=== PATIENT | female | born 1960 | race Caucasian/White ===

== ENCOUNTER 2024-04-16 18:40 | Inpatient (IN) | payer MEDICAID ==
[~2024-04-16] VITALS: Ht 167.6 cm; Wt 68.9 kg
[~2024-04-16 18:40] MED LIST: GLIM2TAB30 PO; METF-414 PO
[2024-04-16 21:10] VITALS: BP 129/50; PULSE 80; RESP 20; TEMP 36.2
[2024-04-16] MEDS ORDERED: GUAIFENESIN 200MG/10ML SUGAR FREE UDC PO PRN (21:15)
[2024-04-16] MEDS ORDERED: LORAZEPAM 0.5MG TABLET PO PRN (21:15)
[2024-04-16] MEDS ORDERED: DEXTROSE 50% WATER 50ML SYRINGE IV PRN (21:15)
[2024-04-16] MEDS ORDERED: ACETAMINOPHEN 325MG TABLET PO PRN (21:15)
[2024-04-16] MEDS ORDERED: CLONIDINE 0.1MG TABLET PO PRN (21:15)
[2024-04-16] MEDS ORDERED: IPRATROPIUM/ALBUTEROL 0.5-3(2.5)MG/3ML NEB HHN PRN (21:49)
[2024-04-16] MEDS: HYDROCODONE/ACETAMINOPHEN 5/325MG TABLET PO PRN (22:48)
[2024-04-16] MEDS: SODIUM CHLORIDE 0.45% 1,000 ML IV SCH (23:00)
[2024-04-17] MEDS: ONDANSETRON HCL 4MG/2ML INJ IV PRN (00:10)
[2024-04-17] MEDS: MORPHINE SULFATE 2 MG/ML INJ (NOT FOR IM USE) IV PRN (00:12)
[2024-04-17 01:08] LABS: CLARITY URINE CLEAR (CLEAR); COLOR URINE YELLOW (YELLOW); GLUCOSE URINE TRACE (NEGATIVE); KETONES URINE 1+ (NEGATIVE); LEUKOCYTE ESTERASE URINE NEGATIVE (NEGATIVE); NITRITE URINE NEGATIVE (NEGATIVE); OCCULT BLOOD URINE TRACE (NEGATIVE); PROTEIN URINE NEGATIVE (NEGATIVE); SPECIFIC GRAVITY URINE 1.013 (1.005-1.030)
[2024-04-17 02:06] LABS: SQUAMOUS EPITHELIAL CELL URINE 2+ /lpf (RARE/1+)
[2024-04-17 02:07] LABS: BACTERIA URINE NONE SEEN; WBC URINE 0-2 /hpf (0-2)
[2024-04-17 06:36] LABS: BASOPHILS % 0.6 % (0.0-2.0); EOSINOPHILS % 2.3 % (0.0-5.0); LYMPHOCYTES % 21.3 % (20.0-50.0); MEAN CORPUSCULAR HEMOGLOBIN 31.6 pg (28.0-32.0); MEAN CORPUSCULAR HGB CONC 34.5 g/dL (31.0-37.0); MEAN CORPUSCULAR VOLUME 91.6 fL (81.0-99.0); MEAN PLATELET VOLUME 7.6 fl (7.4-10.4); MONOCYTES % 9.3 % (2.0-8.0); NEUTROPHILS % 66.5 % (40.0-76.0); PLATELET 177 x1000/uL (130-400); RED BLOOD CELL COUNT 2.84 mill/uL (4.2-5.4); RED CELL DISTRIBUTION WIDTH 13.6 % (11.6-14.6); WHITE BLOOD COUNT 8.7 x1000/uL (4.5-11.0)
[2024-04-17 06:43] LABS: CHLORIDE 105 mEq/L (98-107); POTASSIUM 3.9 mEq/L (3.5-5.1); SODIUM 139 mEq/L (136-145)
[2024-04-17 06:44] LABS: CALCIUM 8.1 mg/dL (8.7-10.4); CARBON DIOXIDE 28 mEq/L (21-32)
[2024-04-17 06:49] LABS: CREATININE 0.5 mg/dL (0.6-1.0); GLUCOSE 170 mg/dL (70-105); UREA NITROGEN BLOOD 7 mg/dL (9-23)
[2024-04-17 06:51] LABS: ALANINE AMINOTRANSFERASE 9 IU/L (10-49); ASPARTATE AMINOTRANSFERASE 14 IU/L (<34); BILIRUBIN TOTAL 1.1 mg/dL (0.1-1.0); PROTEIN TOTAL 5.2 g/dL (6.0-8.3)
[2024-04-17] MEDS: DOCUSATE SODIUM 100MG CAPSULE PO PRN (07:04)
[2024-04-17] MEDS: BLOOD SUGAR DIAGNOSTIC STRIP TEST SCH (07:04)
[2024-04-17] MEDS: INSULIN LISPRO 100 UNITS/ML SUBCUT SCH (07:11)
[2024-04-17 08:00] VITALS: BP 134/70; PULSE 83; RESP 20; TEMP 37.7; O2SAT 96
[2024-04-17 10:00] VITALS: TEMP 36.6
[2024-04-17] MEDS ORDERED: NALOXONE HCL 0.4MG/ML VIAL IV PRN (13:15)
[2024-04-17] MEDS: HYDROCODONE/ACETAMINOPHEN 5/325MG TABLET PO PRN (13:28)
[2024-04-17] MEDS ORDERED: BISACODYL 10MG SUPP PR NR (15:00)
[2024-04-17] MEDS: HYDROMORPHONE HCL/PF 2MG/ML INJ IV PRN (17:10)
[2024-04-17] MEDS: LACTULOSE 20G/30ML UDC PO SCH (18:00)
[2024-04-17 20:00] VITALS: BP 123/67; PULSE 83; RESP 18; TEMP 36.3; O2SAT 98
[2024-04-18 07:00] LABS: CALCIUM 8.2 mg/dL (8.7-10.4); CARBON DIOXIDE 27 mEq/L (21-32); CHLORIDE 104 mEq/L (98-107); POTASSIUM 3.9 mEq/L (3.5-5.1); SODIUM 140 mEq/L (136-145)
[2024-04-18 07:01] LABS: BASOPHILS % 0.6 % (0.0-2.0); HEMATOCRIT. 24.9 % (36.0-48.0); HEMOGLOBIN. 8.4 g/dL (12.0-16.0); LYMPHOCYTES % 20.8 % (20.0-50.0); MEAN CORPUSCULAR HEMOGLOBIN 31.2 pg (28.0-32.0); MEAN CORPUSCULAR HGB CONC 33.8 g/dL (31.0-37.0); MEAN CORPUSCULAR VOLUME 92.4 fL (81.0-99.0); MEAN PLATELET VOLUME 7.6 fl (7.4-10.4); MONOCYTES % 8.2 % (2.0-8.0); NEUTROPHILS % 64.4 % (40.0-76.0); PLATELET 212 x1000/uL (130-400); RED BLOOD CELL COUNT 2.69 mill/uL (4.2-5.4); RED CELL DISTRIBUTION WIDTH 13.6 % (11.6-14.6); WHITE BLOOD COUNT 7.6 x1000/uL (4.5-11.0)
[2024-04-18 07:02] LABS: FERRITIN 49 ng/mL (10-291); FOLIC ACID (FOLATE) SERUM 14.41 ng/mL (>5.38); THYROID STIMULATING HORMONE 3.13 uIU/mL (0.55-4.78)
[2024-04-18 07:04] LABS: VITAMIN B12 SERUM 725 pg/mL (211-911)
[2024-04-18 07:05] LABS: CREATININE 0.5 mg/dL (0.6-1.0); GLUCOSE 147 mg/dL (70-105); IRON 57 ug/dL (50-170)
[2024-04-18 07:06] LABS: UREA NITROGEN BLOOD 7 mg/dL (9-23)
[2024-04-18 07:07] LABS: ALANINE AMINOTRANSFERASE 8 IU/L (10-49); ASPARTATE AMINOTRANSFERASE 13 IU/L (<34)
[2024-04-18 07:08] LABS: BILIRUBIN TOTAL 1.3 mg/dL (0.1-1.0); TOTAL IRON BINDING CAPACITY 308 ug/dl (250-425)
[2024-04-18] MEDS ORDERED: LACTULOSE 20G/30ML UDC PO PRN (07:30)
[2024-04-18 08:00] VITALS: BP 90/60; PULSE 71; RESP 20; TEMP 36.2; O2SAT 98
[2024-04-18] MEDS ORDERED: DOCUSATE SODIUM SUGAR FREE 100MG/10ML UDC NG PRN (11:15)
[2024-04-18] MEDS: DOCUSATE SODIUM 100MG CAPSULE PO PRN (11:25)
[2024-04-18] MEDS: LACTULOSE 20G/30ML UDC PO PRN (11:25)
[2024-04-18] MEDS ORDERED: BISACODYL 10MG SUPP PR PRN (11:45)
[2024-04-18] MEDS ORDERED: BISACODYL 10MG SUPP PR NR (18:30)
[2024-04-18] MEDS: LACTULOSE 20G/30ML UDC PO STA (18:33)
[2024-04-18 20:09] VITALS: BP 143/74; PULSE 74; RESP 20; TEMP 36.2; O2SAT 100
[2024-04-19 08:00] VITALS: BP 139/82; PULSE 82; RESP 18; TEMP 36.4; O2SAT 99
[2024-04-19] MEDS ORDERED: HYDROCODONE/ACETAMINOPHEN 10/325MG TABLET PO PRN (10:00)
[2024-04-19] MEDS: ERGOCALCIFEROL 50000UNITS CAPSULE PO SCH (17:15)
[2024-04-19] MEDS: FERROUS SULFATE 325MG TABLET PO SCH (17:15)
[2024-04-19] MEDS: HYDROCODONE/ACETAMINOPHEN 10/325MG TABLET PO PRN (17:15)
[2024-04-19 20:00] VITALS: BP 129/57; PULSE 80; RESP 18; TEMP 36.4; O2SAT 99
[2024-04-19] MEDS: POLYETHYLENE GLYCOL 3350 (17GM) 1 DOSE PACK PO SCH (22:10)
[2024-04-20 08:00] VITALS: BP 131/43; PULSE 79; RESP 18; TEMP 36.2; O2SAT 96
[2024-04-20] MEDS: ASCORBIC ACID 500 MG TABLET PO SCH (08:38)
[2024-04-20] MEDS: HYDROCODONE/ACETAMINOPHEN 5/325MG TABLET PO PRN (10:32)
[2024-04-20] MEDS ORDERED: LACTULOSE 20G/30ML UDC PO SCH (17:30)
[2024-04-20 20:00] VITALS: BP 136/56; PULSE 78; RESP 18; TEMP 36.5; O2SAT 99
[2024-04-21 08:00] VITALS: BP 152/73; PULSE 84; RESP 18; TEMP 36.2; O2SAT 100
[2024-04-21] MEDS: LACTULOSE 20G/30ML UDC PO SCH (12:34)
[2024-04-21 20:00] VITALS: BP 109/50; PULSE 78; RESP 18; TEMP 36.3; O2SAT 99
[2024-04-22 20:00] VITALS: BP 114/55; PULSE 74; RESP 19; TEMP 36.4; O2SAT 98
[2024-04-23 06:26] LABS: EOSINOPHILS % 2.8 % (0.0-5.0); HEMATOCRIT. 26.3 % (36.0-48.0); LYMPHOCYTES % 21.9 % (20.0-50.0); MEAN CORPUSCULAR HEMOGLOBIN 32.1 pg (28.0-32.0); MEAN CORPUSCULAR HGB CONC 34.3 g/dL (31.0-37.0); MEAN CORPUSCULAR VOLUME 93.4 fL (81.0-99.0); MEAN PLATELET VOLUME 7.4 fl (7.4-10.4); MONOCYTES % 9.7 % (2.0-8.0); NEUTROPHILS % 64.6 % (40.0-76.0); PLATELET 316 x1000/uL (130-400); RED BLOOD CELL COUNT 2.82 mill/uL (4.2-5.4); RED CELL DISTRIBUTION WIDTH 14.9 % (11.6-14.6); WHITE BLOOD COUNT 7.9 x1000/uL (4.5-11.0)
[2024-04-23 06:40] LABS: CALCIUM 8.8 mg/dL (8.7-10.4); CHLORIDE 102 mEq/L (98-107); POTASSIUM 3.9 mEq/L (3.5-5.1); SODIUM 138 mEq/L (136-145)
[2024-04-23 06:41] LABS: CARBON DIOXIDE 26 mEq/L (21-32)
[2024-04-23 06:46] LABS: CREATININE 0.5 mg/dL (0.6-1.0)
[2024-04-23 06:47] LABS: GLUCOSE 160 mg/dL (70-105); UREA NITROGEN BLOOD 8 mg/dL (9-23)
[2024-04-23 08:00] VITALS: BP 116/50; PULSE 88; RESP 18; TEMP 36.7; O2SAT 99
[2024-04-23 20:00] VITALS: BP 112/36; PULSE 78; RESP 18; TEMP 36.6; O2SAT 99
[2024-04-24 08:00] VITALS: BP 111/41; PULSE 71; RESP 19; TEMP 35.5; O2SAT 100
[2024-04-24 20:00] VITALS: BP 116/51; PULSE 82; RESP 19; TEMP 36.4; O2SAT 99
[2024-04-25 08:00] VITALS: BP 125/46; PULSE 73; RESP 18; TEMP 36.1; O2SAT 97
[2024-04-25] MEDS ORDERED: NALOXONE HCL 0.4MG/ML VIAL IV PRN (10:30)
[2024-04-25] MEDS: HYDROCODONE/ACETAMINOPHEN 5/325MG TABLET PO PRN (14:14)
[2024-04-25 20:00] VITALS: BP 111/43; PULSE 74; RESP 19; TEMP 36.8; O2SAT 99
[2024-04-26] MEDS ORDERED: HYDROCODONE/ACETAMINOPHEN 5/325MG TABLET PO PRN (03:30)
[2024-04-26 08:00] VITALS: BP 124/64; PULSE 77; RESP 18; TEMP 36; O2SAT 99
[2024-04-26 20:00] VITALS: BP 101/53; PULSE 77; RESP 20; TEMP 36.1; O2SAT 99
[2024-04-27 05:35] LABS: CARBON DIOXIDE 27 mEq/L (21-32); CHLORIDE 104 mEq/L (98-107); POTASSIUM 4.1 mEq/L (3.5-5.1); SODIUM 139 mEq/L (136-145)
[2024-04-27 05:37] LABS: CALCIUM 8.7 mg/dL (8.7-10.4)
[2024-04-27 05:41] LABS: CREATININE 0.5 mg/dL (0.6-1.0); GLUCOSE 187 mg/dL (70-105); UREA NITROGEN BLOOD 8 mg/dL (9-23)
[2024-04-27 06:16] LABS: BASOPHILS % 1.1 % (0.0-2.0); EOSINOPHILS % 2.2 % (0.0-5.0); HEMATOCRIT. 28.8 % (36.0-48.0); HEMOGLOBIN. 9.9 g/dL (12.0-16.0); LYMPHOCYTES % 20.6 % (20.0-50.0); MEAN CORPUSCULAR HEMOGLOBIN 32.8 pg (28.0-32.0); MEAN CORPUSCULAR HGB CONC 34.2 g/dL (31.0-37.0); MEAN CORPUSCULAR VOLUME 96.2 fL (81.0-99.0); MONOCYTES % 8.9 % (2.0-8.0); NEUTROPHILS % 67.2 % (40.0-76.0); PLATELET 392 x1000/uL (130-400); RED CELL DISTRIBUTION WIDTH 16.2 % (11.6-14.6); WHITE BLOOD COUNT 6.4 x1000/uL (4.5-11.0)
[2024-04-27 08:00] VITALS: BP 100/43; PULSE 71; RESP 18; TEMP 36.3; O2SAT 95
[2024-04-27] MEDS: HYDROCODONE/ACETAMINOPHEN 10/325MG TABLET PO PRN (08:29)
[2024-04-27] MEDS: ACETAMINOPHEN 325MG TABLET PO PRN (16:50)
[2024-04-27 20:00] VITALS: BP 105/50; PULSE 74; RESP 20; TEMP 36.7; O2SAT 99
[2024-04-28 08:00] VITALS: BP 125/49; PULSE 73; RESP 18; TEMP 36.1; O2SAT 97
[2024-04-28] MEDS: ASPIRIN 81MG TABLET PO SCH (11:49)
[2024-04-28 20:00] VITALS: BP 123/50; PULSE 75; RESP 19; TEMP 36.6; O2SAT 98
[2024-04-29 08:00] VITALS: BP 122/46; PULSE 73; RESP 19; TEMP 36.6; O2SAT 95
[2024-04-29 20:00] VITALS: BP 105/43; PULSE 75; RESP 18; TEMP 36.7; O2SAT 99
[2024-04-30 07:33] LABS: CARBON DIOXIDE 26 mEq/L (21-32); CHLORIDE 104 mEq/L (98-107); POTASSIUM 4.4 mEq/L (3.5-5.1); SODIUM 139 mEq/L (136-145)
[2024-04-30 07:34] LABS: CALCIUM 8.9 mg/dL (8.7-10.4)
[2024-04-30 07:39] LABS: CREATININE 0.6 mg/dL (0.6-1.0); GLUCOSE 147 mg/dL (70-105); UREA NITROGEN BLOOD 10 mg/dL (9-23)
[2024-04-30 07:41] LABS: PHOSPHORUS 3.5 mg/dL (2.5-4.9)
[2024-04-30 08:00] VITALS: BP 113/44; PULSE 75; RESP 20; TEMP 36.3; O2SAT 98
[2024-04-30 08:00] LABS: BASOPHILS % 1.3 % (0.0-2.0); HEMATOCRIT. 31.6 % (36.0-48.0); HEMOGLOBIN. 10.5 g/dL (12.0-16.0); LYMPHOCYTES % 30.5 % (20.0-50.0); MEAN CORPUSCULAR HEMOGLOBIN 31.9 pg (28.0-32.0); MEAN CORPUSCULAR HGB CONC 33.2 g/dL (31.0-37.0); MEAN CORPUSCULAR VOLUME 96.2 fL (81.0-99.0); MEAN PLATELET VOLUME 7.9 fl (7.4-10.4); MONOCYTES % 11.3 % (2.0-8.0); NEUTROPHILS % 52.9 % (40.0-76.0); PLATELET 378 x1000/uL (130-400); RED BLOOD CELL COUNT 3.28 mill/uL (4.2-5.4); RED CELL DISTRIBUTION WIDTH 17.8 % (11.6-14.6); WHITE BLOOD COUNT 5.4 x1000/uL (4.5-11.0)
[2024-04-30 20:00] VITALS: BP 98/68; PULSE 75; RESP 19; TEMP 36.7; O2SAT 99
[2024-05-01 08:00] VITALS: BP 117/51; PULSE 68; RESP 18; TEMP 36.4; O2SAT 98
[2024-05-01] MEDS ORDERED: METFORMIN HCL 850MG TABLET PO SCH (09:00)
[2024-05-01] MEDS ORDERED: DEXTROSE 50% WATER 50ML SYRINGE IV PRN (09:30)
[2024-05-01] MEDS: BLOOD SUGAR DIAGNOSTIC STRIP TEST SCH (11:34)
[2024-05-01] MEDS: INSULIN LISPRO 100 UNITS/ML SUBCUT SCH (12:50)
[2024-05-01 20:00] VITALS: BP 101/37; PULSE 72; RESP 19; TEMP 36.7; O2SAT 98
[2024-05-02 08:00] VITALS: BP 148/61; PULSE 84; RESP 18; TEMP 36.1; O2SAT 98
[2024-05-02 19:58] VITALS: BP 112/44; PULSE 76; RESP 20; TEMP 36.2; O2SAT 95
[2024-05-03 08:00] VITALS: BP 90/45; PULSE 88; RESP 18; TEMP 36.2; O2SAT 97
[2024-05-03 20:00] VITALS: BP 103/44; PULSE 75; RESP 20; TEMP 36.4; O2SAT 99
[2024-05-04 07:13] LABS: BASOPHILS % 1.1 % (0.0-2.0); EOSINOPHILS % 2.9 % (0.0-5.0); HEMATOCRIT. 33.2 % (36.0-48.0); HEMOGLOBIN. 10.9 g/dL (12.0-16.0); LYMPHOCYTES % 37.5 % (20.0-50.0); MEAN CORPUSCULAR HEMOGLOBIN 31.9 pg (28.0-32.0); MEAN CORPUSCULAR HGB CONC 32.7 g/dL (31.0-37.0); MEAN CORPUSCULAR VOLUME 97.4 fL (81.0-99.0); MEAN PLATELET VOLUME 7.8 fl (7.4-10.4); MONOCYTES % 10.8 % (2.0-8.0); NEUTROPHILS % 47.7 % (40.0-76.0); PLATELET 348 x1000/uL (130-400); RED BLOOD CELL COUNT 3.41 mill/uL (4.2-5.4); RED CELL DISTRIBUTION WIDTH 17.6 % (11.6-14.6); WHITE BLOOD COUNT 4.3 x1000/uL (4.5-11.0)
[2024-05-04 07:15] LABS: CHLORIDE 107 mEq/L (98-107)
[2024-05-04 07:16] LABS: CARBON DIOXIDE 24 mEq/L (21-32); POTASSIUM 4.1 mEq/L (3.5-5.1); SODIUM 139 mEq/L (136-145)
[2024-05-04 07:22] LABS: CREATININE 0.5 mg/dL (0.6-1.0); GLUCOSE 148 mg/dL (70-105); UREA NITROGEN BLOOD 8 mg/dL (9-23)
[2024-05-04 08:00] VITALS: BP 114/69; PULSE 70; RESP 18; TEMP 36.3; O2SAT 96
[2024-05-04 20:00] VITALS: BP 116/55; PULSE 70; RESP 18; TEMP 36.4; O2SAT 99
[2024-05-05 08:00] VITALS: BP 140/63; PULSE 80; RESP 16; TEMP 35.6; O2SAT 99
[2024-05-05 20:00] VITALS: BP 123/48; PULSE 72; RESP 20; TEMP 36.2; O2SAT 98
[2024-05-06 08:00] VITALS: BP 145/65; PULSE 87; RESP 18; TEMP 36.4; O2SAT 99
[2024-05-06] MEDS ORDERED: NALOXONE HCL 0.4MG/ML VIAL IV PRN (15:15)
[2024-05-06 20:02] VITALS: BP 133/65; PULSE 20; RESP 20; TEMP 36.2; O2SAT 97
[2024-05-07 08:00] VITALS: BP 112/58; PULSE 77; RESP 19; TEMP 36.6; O2SAT 98
[2024-05-07 10:20] LABS: CHLORIDE 103 mEq/L (98-107); POTASSIUM 4.1 mEq/L (3.5-5.1); SODIUM 139 mEq/L (136-145)
[2024-05-07 10:22] LABS: CALCIUM 9.3 mg/dL (8.7-10.4); CARBON DIOXIDE 25 mEq/L (21-32)
[2024-05-07 10:27] LABS: CREATININE 0.7 mg/dL (0.6-1.0); GLUCOSE 258 mg/dL (70-105)
[2024-05-07 10:28] LABS: BASOPHILS % 0.9 % (0.0-2.0); EOSINOPHILS % 1.4 % (0.0-5.0); HEMATOCRIT. 34.6 % (36.0-48.0); HEMOGLOBIN. 11.2 g/dL (12.0-16.0); LYMPHOCYTES % 20.7 % (20.0-50.0); MEAN CORPUSCULAR HEMOGLOBIN 32.2 pg (28.0-32.0); MEAN CORPUSCULAR HGB CONC 32.4 g/dL (31.0-37.0); MEAN CORPUSCULAR VOLUME 99.3 fL (81.0-99.0); MEAN PLATELET VOLUME 7.9 fl (7.4-10.4); PLATELET 310 x1000/uL (130-400); RED BLOOD CELL COUNT 3.49 mill/uL (4.2-5.4); RED CELL DISTRIBUTION WIDTH 17.9 % (11.6-14.6); UREA NITROGEN BLOOD 12 mg/dL (9-23)
[2024-05-07] MEDS: HYDROCODONE/ACETAMINOPHEN 10/325MG TABLET PO PRN (10:29)
[2024-05-07 10:30] LABS: PHOSPHORUS 3.3 mg/dL (2.5-4.9)
[2024-05-07 20:06] VITALS: BP 116/49; PULSE 71; RESP 18; TEMP 36.2; O2SAT 98
[2024-05-07] MEDS: HYDROCODONE/ACETAMINOPHEN 5/325MG TABLET PO PRN (21:49)
[2024-05-08 08:00] VITALS: BP 117/56; PULSE 70; RESP 18; TEMP 36.6; O2SAT 98
[2024-05-08 20:00] VITALS: BP 109/49; PULSE 74; RESP 18; TEMP 36.6; O2SAT 97
[2024-05-09 08:00] VITALS: BP 117/84; PULSE 66; RESP 17; TEMP 36.8; O2SAT 97
[2024-05-09 20:00] VITALS: BP 125/49; PULSE 83; RESP 19; TEMP 36.5; O2SAT 98
[2024-05-10 08:00] VITALS: BP 129/56; PULSE 75; RESP 18; TEMP 36.2; O2SAT 98
[2024-05-10] MEDS ORDERED: POLY17PO43 PO (09:34)
[2024-05-10] MEDS ORDERED: FERR-63 PO (09:34)
[2024-05-10] MEDS ORDERED: ASPI-1160 PO (09:34)
[2024-05-10] MEDS ORDERED: ASCO500T20 PO (09:34)
[2024-05-10 09:59] VITALS: BP 129/56; PULSE 75; TEMP 97.2; O2SAT 98
== END 2024-05-10 11:20 | disposition home health service (06) | DRG 862 ==
PROVIDERS: ADMIT Physical Medicine & Rehabilitation Spinal Cord Injury Medicine; ATTEND Internal Medicine
DX: S72.141D Displaced intertrochanteric fracture of right femur, subsequent encounter for closed fracture with routine healing (principal); L89.150 Pressure ulcer of sacral region, unstageable; E11.42 Type 2 diabetes mellitus with diabetic polyneuropathy; D64.9 Anemia, unspecified; D72.829 Elevated white blood cell count, unspecified; E55.9 Vitamin D deficiency, unspecified; W01.0XXD Fall on same level from slipping, tripping and stumbling without subsequent striking against object, subsequent encounter; K59.00 Constipation, unspecified; L74.0 Miliaria rubra; M16.0 Bilateral primary osteoarthritis of hip; R32 Unspecified urinary incontinence; R53.81 Other malaise; Z83.3 Family history of diabetes mellitus; Z91.81 History of falling; Z79.4 Long term (current) use of insulin; Z79.82 Long term (current) use of aspirin; Z79.84 Long term (current) use of oral hypoglycemic drugs; Z56.0 Unemployment, unspecified
CPT/HCPCS: 36415; 73521; 80048; 80053; 81003; 82306; 82607; 82728; 82746; 82962; 83036; 83540; 83550; 83735; 84100; 84134; 84443; 85025; 92523; 97110; 97116; 97150; 97163; 97166; 97530; 97535; A4565; J1171; J1815; J2270; J2405